=== PATIENT | male | born 1985 | race Caucasian/White ===

== ENCOUNTER 2019-02-26 07:27 | Day surgery (SDC) | payer OTHER ==
[2019-02-23 10:27] VITALS: BMI 23.7
[2019-02-26] MEDS ORDERED: Bupivacaine/Epinephrine 0.25% 30 ML VIAL ONE (08:53)
[2019-02-26] MEDS ORDERED: Fentanyl 100 MCG/2 ML VIAL ONE (08:57)
[2019-02-26] MEDS ORDERED: PROPOFOL 200 MG/20 ML VIAL ONE (11:26)
[2019-02-26] MEDS ORDERED: Ondansetron PF 4 MG/2 ML Vial ONE (11:26)
[2019-02-26] MEDS ORDERED: Lidocaine 1% PF 5 ML VIAL ONE (11:26)
[2019-02-26] MEDS ORDERED: Ketorolac Tromethamine 30 MG/ML VIAL ONE (11:26)
[2019-02-26] MEDS ORDERED: Dexamethasone 20 MG/5 ML VIAL ONE (11:26)
--- NOTE | 2019-02-26 13:52 | OP ---
DATE OF PROCEDURE: 02/26/2019 PREOPERATIVE DIAGNOSIS: Right inguinal hernia. PROCEDURE PERFORMED: Right inguinal hernia repair with mesh. INDICATIONS: A 34-year-old male, who had a painful groin bulge on the right side. FINDINGS: Right indirect inguinal hernia. DESCRIPTION OF PROCEDURE: After informed consent was obtained, the patient was taken to the operating room, given general mask anesthesia, placed in the supine position. Right groin was prepped and draped in usual fashion, local anesthesia infiltrated subcutaneously and deep. Transverse right inguinal incision was performed. Subcu divided sharply. The fascia external oblique was incised in direction of its fibers through the external ring. Spermatic cord isolated with a [place] drain. Cremasteric fibers . Hernia sac was found. It was dissected from surrounding cord structures down to the internal ring and reduced. Reduction maintained utilizing a PHS hernia system, posterior layer placed in the preperitoneal space, anterior was laid out. A notch was cut out for the spermatic cord, sutured to the pubic tubercle medially, tucked under the external oblique fascia laterally. The external oblique fascia then closed with a running 3-0 Vicryl. Hemostasis assured. Enzo was closed with interrupted 3-0 Vicryl, skin closed with a running subcuticular 4-0 Rapide. Steri-Strips applied, sterile bandage applied. The patient tolerated the procedure well, was transferred to Recovery in good condition. Sponge and needle count verified correct x2. Job ID: [id number]
== END 2019-02-26 11:55 | disposition home or self-care (01) ==
LOC: SDC 07:27
PROVIDERS: ATTEND Surgery
PROC: 0YU50JZ Supplement Right Inguinal Region with Synthetic Substitute, Open Approach (ICD-10-PCS; principal; 2019-02-26)
DX: K40.90 Unilateral inguinal hernia, without obstruction or gangrene, not specified as recurrent (principal); Z87.891 Personal history of nicotine dependence
CPT/HCPCS: C1781; J1100; J1885; J2001; J2405; J2704; J3010